=== PATIENT | female | born 1995 | race African-American/Black ===

== ENCOUNTER 2016-04-01 18:41 | Emergency (ER) | payer OTHER ==
[2016-04-01] MEDS ORDERED: METOCLOPRAMIDE INJ 10MG/2ML VIAL (J2765) As Ordered ONE (19:35)
[2016-04-01] MEDS ORDERED: diphenhydrAMINE INJ 50MG/ML VIAL (J1200) As Ordered ONE (19:35)
[2016-04-01] MEDS ORDERED: KETOROLAC 30 MG/ML VIAL (J1885) As Ordered ONE (19:35)
[2016-04-01 19:53] LABS: CONTROL LINE HCG INT CTR LINE PRESENT
--- NOTE | 2016-04-01 20:40 | REPUSA ---
CT of the head Clinical history: Headache. Technique: Multiple axial CT images were obtained through the head without administration of contrast . Findings: The ventricles and sulci are symmetric bilaterally. There is no evidence of acute hemorrhag e or infarct. There is no midline shift, mass effect, or extra-axial fluid collection. The osseous st ructures are unremarkable. The visualized paranasal sinuses and mastoid air cells are clear. Impression: Negative study.
--- NOTE | 2016-04-01 21:11 | EDDOCDS ---
Nurse's Notes [facility] Name: Michael Gallegos Age: 20 yrs Sex: Female : 1995 Arrival Date: 04/01/2016 Time: 18:41 Bed 18 Private MD: Shamir Wagner [facility] Diagnosis: Migraine without aura, not intractable Presentation: 04/01 18:47 Presenting complaint: EMS states: pain behind left eye began earlier today, FSBS 81, jjr room mate reported slurred speech and pt reported right arm and right side of face numbness resolved on EMS arrival. This patient has no additional risk factors. Adult Sepsis Screening: The patient does not have new or worsening altered mentation. Patient's respiratory rate is less than 22. Systolic blood pressure is greater than 100. Patient has a qSOFA score of 0- Negative Sepsis Screen. Suicide/Homicide risk assessment- the patient denies having any suicidal and/or homicidal ideations and does not present with any other emotional, behavioral or mental health complaints. 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 Transition of care: patient was not received from another setting of care. 18:47 Acuity: GLENROY Level 3 rust 18:47 Method Of Arrival: Ambulance rust Triage Assessment: 18:52 Headache History: This headache is more severe than any previous headaches the patient r has experienced. General: Appears in no apparent distress, Behavior is appropriate for age. Pain: Pain currently is 7 out of 10 on a pain scale. Pain began 1 hour ago Also complains of nausea. Pt Declines HIV testing. Neurological: No deficits noted. Reports dizziness, headache. GI: Reports nausea. BOBBIN PRESSER: 18:51 LMP 03/17/2016 jjr Historical: - Allergies: no known allergies; - Home Meds: 1. Tylenol 325 mg Oral tab 2 tabs every 4 hours (Last dose: 04/01/2016 17:45) - PMHx: none; - PSHx: none; - Social history: Smoking status: Patient states was never smoker of tobacco. No barriers to communication noted, The patient speaks fluent Palauan. - Family history: Not pertinent. - : The pt / caregiver states he / she is not on anticoagulants. Home medication list is obtained from the patient. - Exposure Risk Screening:: None identified. Screenin:10 Screening information is obtained from the patient. Fall risk: No risks identified. ko2 Assistance ADL's: requires no assistance with activities of daily living. Abuse/DV Screen: The patient / caregiver reports he/she is: not in a situation that causes fear, pain or injury. Nutritional screening: No deficits noted. Advance Directives: Currently, there is no health care proxy. There is no active DNR order. There is no living will. There is no Power of Production Control Coordinator. home support is adequate. Assessment: 18:53 Pain: Location: left eye and left amish Pain currently is 7 out of 10 on a pain scale. jjr Neurological: Entry Level Java Developer are equal bilaterally Speech is normal, Facial symmetry appears normal. 19:33 General: Appears uncomfortable, Behavior is appropriate for age, cooperative. Pain: ko2 Location: left amish and left eye Pain currently is 7 out of 10 on a pain scale. Neurological: Level of Consciousness is awake, alert, Oriented to person, place, time, Entry Level Java Developer are equal bilaterally Speech is normal, Facial symmetry appears normal. Respiratory: Airway is patent Respiratory effort is even, unlabored. Derm: Skin is normal. Musculoskeletal: Range of motion intact in all extremities. 20:18 General: Appears in no apparent distress, Behavior is appropriate for age, cooperative. ko2 Pain: Location: left amish Pain currently is 3 out of 10 on a pain scale. Neurological: Level of Consciousness is awake, alert. Derm: Skin is normal. 21:09 General: Appears in no apparent distress, Behavior is appropriate for age, cooperative. ko2 Pain: Location: left amish Pain currently is 1 out of 10 on a pain scale. Neurological: Level of Consciousness is awake, alert. Respiratory: Airway is patent Respiratory effort is even, unlabored. Derm: Skin is normal. Vital Signs: 18:49 BP 121 / 71; Pulse 74; Resp 18; Temp 97.8(TE); Pulse Ox 100% on R/A; Weight 65.77 kg rn1 (R); Height 5 ft. 2 in. (157.48 cm) (R); Pain 8/10; 20:21 Pain 3/10; ko2 21:07 BP 111 / 70; Pulse 75; Resp 18; Temp 99.1(TE); Pulse Ox 100% ; Pain 8/10; rn1 18:49 Body Mass Index 26.52 (65.77 kg, 157.48 cm) rn1 Vitals: 18:51 Log In Time N/A - ambulance arrival. jr ED Course: 18:42 Patient visited by Stephenie Anand Jewelry Estimator. lbd 18:42 Patient moved to Waiting lbd 18:43 [facility] is Private Physician. lbd 18:43 Rossi Manzo, RN is Primary Nurse. lbd 18:43 Patient moved to 18 lbd 18:49 Triage Initiated jjr 18:54 The patient / caregiver is instructed regarding the plan of care and ED course. jjr 18:56 Lyn Marshall RN is Primary Nurse. ko2 19:02 Primary Nurse role handed off by Rossi Manzo RN jjr 19:04 Cristobal Berger DO is Attending Physician. mm11 19:05 Patient visited by Cristobal Berger DO. mm11 19:07 Patient visited by Triston Bernardo PCA. kb5 19:13 Patient visited by Cristobal Berger DO. mm11 19:25 Inserted saline lock: 20 gauge in right antecubital area and blood collected. The ko2 patient tolerated the procedure well. 19:33 HCG,Serum Qualitative Sent. ko2 19:46 Patient visited by Lyn Marshall RN. ko2 20:06 Patient visited by Triston Bernardo PCA. kb5 20:18 Patient visited by Lyn Marshall RN. ko2 20:50 Patient visited by Cristobal Berger DO. mm11 20:50 [facility] is Referral Physician. mm11 21:02 Patient visited by Triston Bernardo PCA. kb5 21:08 CT Head Without Contrast Returned. EDMS 21:10 Discontinued lock intact, bleeding controlled, pressure dressing applied, No ko2 redness/swelling at site. No procedures done that require assistance. Administered Medications: 19:45 Drug: diphenhydrAMINE 25 mg [diphenhydramine 50 mg/mL injection solution (0.5 mL)] ko2 Route: IVP; Site: right antecubital; 20:21 Follow up: Response: No Adverse Reaction ko2 19:45 Drug: NS 0.9% 1000 ml [sodium chloride 0.9 % intravenous solution] Route: IV; Rate: ko2 bolus; Site: right antecubital; 19:46 Drug: ketorolac 30 mg [ketorolac 30 mg/mL (1 mL) injection solution (1 mL)] Route: IVP; ko2 Site: right antecubital; 20:21 Follow up: Pain 3/10 Adult; Response: Pain is decreased ko2 19:46 Drug: Metoclopramide 10 mg [metoclopramide 5 mg/mL injection solution] Route: IV; Rate: ko2 40 mg/hr; Infused Over: 15 mins; Site: right antecubital; 20:04 Follow up: IV Status: Completed infusion mlc 20:21 Follow up: Response: Nausea is resolved ko2 Order Results: Lab Order: HCG,Serum Qualitative; SPEC'M 04/01/16 19:32 Test: HCG, SERUM QUALITATIVE; Value: NEGATIVE; Range: NEGATIVE; Status: F Radiology Order: CT Head Without Contrast Test: CT Head Without Contrast REASON FOR EXAMINATION: new onset headache; ; CT of the head; Clinical history: Headache.; Technique: Multiple axial CT images were obtained through the head without administration of contrast; .; Findings: The ventricles and sulci are symmetric bilaterally. There is no evidence of acute hemorrhag; e or infarct. There is no midline shift, mass effect, or extra-axial fluid collection. The osseous st; ructures are unremarkable. The visualized paranasal sinuses and mastoid air cells are clear.; Impression: Negative study.; ; Outcome: 20:50 Discharge ordered by Provider. mm11 21:10 Discharge Assessment: Patient awake, alert and oriented x 3. No cognitive and/or ko2 functional deficits noted. Patient verbalized understanding of disposition instructions. patient administered narcotics - no. The following High Risk Discharge criteria are identified: None. Discharged to home ambulatory, with friend. Condition: stable. Discharge instructions given to patient, Instructed on discharge instructions, follow up and referral plans. Demonstrated understanding of instructions, Pt was receptive of discharge instructions/ teaching. CT Study completed. Property sent home with patient. 21:10 Patient left the ED. ko2 Signatures: Dispatcher MedHost EDMS Stephenie Anand, Jewelry Estimator Unit lbd Triston Bernardo, LOG HANDLER LOG HANDLER kb5 Cristobal Berger, DO DO mm11 Rossi Manzo, RN RN jnavr Erica Quan,RN RN mlc Lyn Marshall RN RN ko2 Lalo Branham rn1 MTDD
--- NOTE | 2016-04-01 21:11 | EDDOCDS ---
Physician Documentation [facility] Name: Michael Gallegos Age: 20 yrs Sex: Female : 1995 Arrival Date: 04/01/2016 Time: 18:41 Bed 18 Private MD: Shamir Wagner [facility] Disposition: 04/01/16 20:50 Discharged to Home/Self Care. Impression: Migraine without aura, not intractable. - Condition is Stable. - Discharge Instructions: Migraine Headache. - Medication Reconciliation, Local Pharmacy Hours form. - Follow up: Shamir Wagner [facility]; When: As needed; Reason: Continuance of care. - Problem is an acute exacerbation. - Symptoms are resolved. Historical: - Allergies: no known allergies; - Home Meds: 1. Tylenol 325 mg Oral tab 2 tabs every 4 hours (Last dose: 04/01/2016 17:45) - PMHx: none; - PSHx: none; - Social history: Smoking status: Patient states was never smoker of tobacco. No barriers to communication noted, The patient speaks fluent Uzbek. - Family history: Not pertinent. - : The pt / caregiver states he / she is not on anticoagulants. Home medication list is obtained from the patient. - Exposure Risk Screening:: None identified. 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 2 in. (157.48 cm) (R); Pain 8/10; 20:21 Pain 3/10; ko2 21:07 BP 111 / 70; Pulse 75; Resp 18; Temp 99.1(TE); Pulse Ox 100% ; Pain 8/10; rn1 18:49 Body Mass Index 26.52 (65.77 kg, 157.48 cm) rn1 MDM: 19:15 IV Saline Lock ordered. mm11 19:15 ketorolac 30 mg IVP once ordered. mm11 19:15 Metoclopramide 10 mg IV at 40 mg/hr once over 15 mins ordered. mm11 19:15 diphenhydrAMINE 25 mg IVP once ordered. mm11 19:15 NS 0.9% 1000 ml IV at bolus once ordered. mm11 19:16 CT Head Without Contrast Ordered. EDMS 19:16 HCG,Serum Qualitative Ordered. EDMS 19:56 HCG,Serum Qualitative Reviewed. mm11 Administered Medications: 19:45 Drug: diphenhydrAMINE 25 mg [diphenhydramine 50 mg/mL injection solution (0.5 mL)] ko2 Route: IVP; Site: right antecubital; 20:21 Follow up: Response: No Adverse Reaction ko2 19:45 Drug: NS 0.9% 1000 ml [sodium chloride 0.9 % intravenous solution] Route: IV; Rate: ko2 bolus; Site: right antecubital; 19:46 Drug: ketorolac 30 mg [ketorolac 30 mg/mL (1 mL) injection solution (1 mL)] Route: IVP; ko2 Site: right antecubital; 20:21 Follow up: Pain 3/10 Adult; Response: Pain is decreased ko2 19:46 Drug: Metoclopramide 10 mg [metoclopramide 5 mg/mL injection solution] Route: IV; Rate: ko2 40 mg/hr; Infused Over: 15 mins; Site: right antecubital; 20:04 Follow up: IV Status: Completed infusion mlc 20:21 Follow up: Response: Nausea is resolved ko2 Signatures: Dispatcher MedHost EDMS Cristobal Berger DO DO mm11 Rossi Manzo RN RN jjr Ogden, Kari, RN RN ko2 Erica Quan RN [facility] [place] MTDD
--- NOTE | 2016-04-05 09:56 | EDDOCDS ---
Physician Documentation [facility] Name: Michael Gallegos Age: 20 yrs Sex: Female : 1995 Arrival Date: 04/01/2016 Time: 18:41 Bed 18 Private MD: Shamir Wagner [facility] Disposition: 04/01/16 20:50 Discharged to Home/Self Care. Impression: Migraine without aura, not intractable. - Condition is Stable. - Discharge Instructions: Migraine Headache. - Medication Reconciliation, Local Pharmacy Hours form. - Follow up: Shamir Wagner [facility]; When: As needed; Reason: Continuance of care. - Problem is an acute exacerbation. - Symptoms are resolved. Historical: - Allergies: no known allergies; - Home Meds: 1. Tylenol 325 mg Oral tab 2 tabs every 4 hours (Last dose: 04/01/2016 17:45) - PMHx: none; - PSHx: none; - Social history: Smoking status: Patient states was never smoker of tobacco. No barriers to communication noted, The patient speaks fluent Lithuanian. - Family history: Not pertinent. - : The pt / caregiver states he / she is not on anticoagulants. Home medication list is obtained from the patient. - Exposure Risk Screening:: None identified. DIRECTOR OF MARKETING: 04/01 18:51 LMP 03/17/2016 jjr Vital Signs: 18:49 BP 121 / 71; Pulse 74; Resp 18; Temp 97.8(TE); Pulse Ox 100% on R/A; Weight 65.77 kg / rn1 145 lbs (R); Height 5 ft. 2 in. (157.48 cm) (R); Pain 8/10; 20:21 Pain 3/10; ko2 21:07 BP 111 / 70; Pulse 75; Resp 18; Temp 99.1(TE); Pulse Ox 100% ; Pain 8/10; rn1 18:49 Body Mass Index 26.52 (65.77 kg, 157.48 cm) rn1 MDM: 19:15 IV Saline Lock ordered. mm11 19:15 ketorolac 30 mg IVP once ordered. mm11 19:15 Metoclopramide 10 mg IV at 40 mg/hr once over 15 mins ordered. mm11 19:15 diphenhydrAMINE 25 mg IVP once ordered. mm11 19:15 NS 0.9% 1000 ml IV at bolus once ordered. mm11 19:16 CT Head Without Contrast Ordered. EDMS 19:16 HCG,Serum Qualitative Ordered. EDMS 19:56 HCG,Serum Qualitative Reviewed. mm11 04/02 09:04 T-Sheet-- Draft Copy was scanned into [employer] and attached to record. gb 09:04 Radiology Report was scanned into [employer] and attached to record. gb 12:53 PCR was scanned into [employer] and attached to record. gb Administered Medications: 04/01 19:45 Drug: diphenhydrAMINE 25 mg [diphenhydramine 50 mg/mL injection solution (0.5 mL)] ko2 Route: IVP; Site: right antecubital; 20:21 Follow up: Response: No Adverse Reaction ko2 19:45 Drug: NS 0.9% 1000 ml [sodium chloride 0.9 % intravenous solution] Route: IV; Rate: ko2 bolus; Site: right antecubital; 19:46 Drug: ketorolac 30 mg [ketorolac 30 mg/mL (1 mL) injection solution (1 mL)] Route: IVP; ko2 Site: right antecubital; 20:21 Follow up: Pain 3/10 Adult; Response: Pain is decreased ko2 19:46 Drug: Metoclopramide 10 mg [metoclopramide 5 mg/mL injection solution] Route: IV; Rate: ko2 40 mg/hr; Infused Over: 15 mins; Site: right antecubital; 20:04 Follow up: IV Status: Completed infusion mlc 20:21 Follow up: Response: Nausea is resolved ko2 Signatures: Dispatcher [employer]Host EDMS Patience Edwards, Reg Reg Cristobal Piña, DO mm11 Rossi Manzo RN RN Lyn Richter RN RN ko2 Erica Quan RN The chart was reviewed and I authenticate all verbal orders and agree with the evaluation and treatment provided.Attachments: 04/02 09:04 T-Sheet-- Draft Copy gb Chart Complete MTDD
--- NOTE | 2016-04-05 09:56 | EDDOCDS ---
Nurse's Notes [facility] Name: Michael Gallegos Age: 20 yrs Sex: Female : 1995 Arrival Date: 04/01/2016 Time: 18:41 Bed 18 Private MD: Shamir Wagner [facility] Diagnosis: Migraine without aura, not intractable Presentation: 04/01 18:47 Presenting complaint: EMS states: pain behind left eye began earlier today, FSBS 81, jjr room mate reported slurred speech and pt reported right arm and right side of face numbness resolved on EMS arrival. This patient has no additional risk factors. Adult Sepsis Screening: The patient does not have new or worsening altered mentation. Patient's respiratory rate is less than 22. Systolic blood pressure is greater than 100. Patient has a qSOFA score of 0- Negative Sepsis Screen. Suicide/Homicide risk assessment- the patient denies having any suicidal and/or homicidal ideations and does not present with any other emotional, behavioral or mental health complaints. 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 Transition of care: patient was not received from another setting of care. 18:47 Acuity: GLENROY Level 3 [facility] 18:47 Method Of Arrival: Ambulance [facility] Triage Assessment: 18:52 Headache History: This headache is more severe than any previous headaches the patient r has experienced. General: Appears in no apparent distress, Behavior is appropriate for age. Pain: Pain currently is 7 out of 10 on a pain scale. Pain began 1 hour ago Also complains of nausea. Pt Declines HIV testing. Neurological: No deficits noted. Reports dizziness, headache. GI: Reports nausea. 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 Tylenol 325 mg Oral tab 2 tabs every 4 hours (Last dose: 04/01/2016 17:45) - PMHx: none; - PSHx: none; - Social history: Smoking status: Patient states was never smoker of tobacco. No barriers to communication noted, The patient speaks fluent [place]. - Family history: Not pertinent. - : The pt / caregiver states he / she is not on anticoagulants. Home medication list is obtained from the patient. - Exposure Risk Screening:: None identified. Screenin:10 Screening information is obtained from the patient. Fall risk: No risks identified. ko2 Assistance ADL's: requires no assistance with activities of daily living. Abuse/DV Screen: The patient / caregiver reports he/she is: not in a situation that causes fear, pain or injury. Nutritional screening: No deficits noted. Advance Directives: Currently, there is no health care proxy. There is no active DNR order. There is no living will. There is no Power of Pharmacy Innovation Assistant. home support is adequate. Assessment: 18:53 Pain: Location: left eye and left islam Pain currently is 7 out of 10 on a pain scale. jjr Neurological: Animal Groomer are equal bilaterally Speech is normal, Facial symmetry appears normal. 19:33 General: Appears uncomfortable, Behavior is appropriate for age, cooperative. Pain: ko2 Location: left islam and left eye Pain currently is 7 out of 10 on a pain scale. Neurological: Level of Consciousness is awake, alert, Oriented to person, place, time, Animal Groomer are equal bilaterally Speech is normal, Facial symmetry appears normal. Respiratory: Airway is patent Respiratory effort is even, unlabored. Derm: Skin is normal. Musculoskeletal: Range of motion intact in all extremities. 20:18 General: Appears in no apparent distress, Behavior is appropriate for age, cooperative. ko2 Pain: Location: left islam Pain currently is 3 out of 10 on a pain scale. Neurological: Level of Consciousness is awake, alert. Derm: Skin is normal. 21:09 General: Appears in no apparent distress, Behavior is appropriate for age, cooperative. ko2 Pain: Location: left islam Pain currently is 1 out of 10 on a pain scale. Neurological: Level of Consciousness is awake, alert. Respiratory: Airway is patent Respiratory effort is even, unlabored. Derm: Skin is normal. Vital Signs: 18:49 BP 121 / 71; Pulse 74; Resp 18; Temp 97.8(TE); Pulse Ox 100% on R/A; Weight 65.77 kg rn1 (R); Height 5 ft. 2 in. (157.48 cm) (R); Pain 8/10; 20:21 Pain 3/10; ko2 21:07 BP 111 / 70; Pulse 75; Resp 18; Temp 99.1(TE); Pulse Ox 100% ; Pain 8/10; rn1 18:49 Body Mass Index 26.52 (65.77 kg, 157.48 cm) rn1 Vitals: 18:51 Log In Time N/A - ambulance arrival. jr ED Course: 18:42 Patient visited by Stephenie Anand Personal Care Worker. lbd 18:42 Patient moved to Waiting lbd 18:43 [facility] is Private Physician. lbd 18:43 Rossi Manzo, RN is Primary Nurse. lbd 18:43 Patient moved to 18 lbd 18:49 Triage Initiated jjr 18:54 The patient / caregiver is instructed regarding the plan of care and ED course. jjr 18:56 Lyn Marshall,BENITA is Primary Nurse. ko2 19:02 Primary Nurse role handed off by Rossi Manzo RN jjr 19:04 Cristobal Berger DO is Attending Physician. mm11 19:05 Patient visited by Cristobal Berger DO. mm11 19:07 Patient visited by Triston Bernardo PCA. kb5 19:13 Patient visited by Cristobal Berger DO. mm11 19:25 Inserted saline lock: 20 gauge in right antecubital area and blood collected. The ko2 patient tolerated the procedure well. 19:33 HCG,Serum Qualitative Sent. ko2 19:46 Patient visited by Lyn Marshall RN. ko2 20:06 Patient visited by Triston Bernardo PCA. kb5 20:18 Patient visited by Lyn Marshall RN. ko2 20:50 Patient visited by Cristobal Berger DO. mm11 20:50 [facility] is Referral Physician. mm11 21:02 Patient visited by Triston Bernardo PCA. kb5 21:08 CT Head Without Contrast Returned. EDMS 21:10 Discontinued lock intact, bleeding controlled, pressure dressing applied, No ko2 redness/swelling at site. No procedures done that require assistance. 04/02 09:04 T-Sheet-- Draft Copy was scanned into [employer] and attached to record. gb 09:04 Radiology Report was scanned into [employer] and attached to record. gb 12:53 PCR was scanned into [employer] and attached to record. gb Administered Medications: 04/01 19:45 Drug: diphenhydrAMINE 25 mg [diphenhydramine 50 mg/mL injection solution (0.5 mL)] ko2 Route: IVP; Site: right antecubital; 20:21 Follow up: Response: No Adverse Reaction ko2 19:45 Drug: NS 0.9% 1000 ml [sodium chloride 0.9 % intravenous solution] Route: IV; Rate: ko2 bolus; Site: right antecubital; 19:46 Drug: ketorolac 30 mg [ketorolac 30 mg/mL (1 mL) injection solution (1 mL)] Route: IVP; ko2 Site: right antecubital; 20:21 Follow up: Pain 3/10 Adult; Response: Pain is decreased ko2 19:46 Drug: Metoclopramide 10 mg [metoclopramide 5 mg/mL injection solution] Route: IV; Rate: ko2 40 mg/hr; Infused Over: 15 mins; Site: right antecubital; 20:04 Follow up: IV Status: Completed infusion mlc 20:21 Follow up: Response: Nausea is resolved ko2 Order Results: Lab Order: HCG,Serum Qualitative; SPEC'M 04/01/16 19:32 Test: HCG, SERUM QUALITATIVE; Value: NEGATIVE; Range: NEGATIVE; Status: F Radiology Order: CT Head Without Contrast Test: CT Head Without Contrast REASON FOR EXAMINATION: new onset headache; ; CT of the head; Clinical history: Headache.; Technique: Multiple axial CT images were obtained through the head without administration of contrast; .; Findings: The ventricles and sulci are symmetric bilaterally. There is no evidence of acute hemorrhag; e or infarct. There is no midline shift, mass effect, or extra-axial fluid collection. The osseous st; ructures are unremarkable. The visualized paranasal sinuses and mastoid air cells are clear.; Impression: Negative study.; ; Outcome: 20:50 Discharge ordered by Provider. mm11 21:10 Discharge Assessment: Patient awake, alert and oriented x 3. No cognitive and/or ko2 functional deficits noted. Patient verbalized understanding of disposition instructions. patient administered narcotics - no. The following High Risk Discharge criteria are identified: None. Discharged to home ambulatory, with friend. Condition: stable. Discharge instructions given to patient, Instructed on discharge instructions, follow up and referral plans. Demonstrated understanding of instructions, Pt was receptive of discharge instructions/ teaching. CT Study completed. Property sent home with patient. 21:10 Patient left the ED. ko2 Signatures: Dispatcher [employer] EDMS Stephenie Anand, Personal Care Worker Unit lbd Patience Edwards, Reg Reg gb AzCristin wallaceer, PRESS SHOP SUPERVISOR PRESS SHOP SUPERVISOR kb5 Cristobal Berger, DO mm11 Rossi Manzo RN Erica Pringle RN RN mlc Ogden, Kari, RN RN ko2 Lalo Branham rn1 Chart Complete MTDD
--- NOTE | 2016-04-05 09:56 | EDDOCDS ---
Physician Documentation [facility] Name: Michael Gallegos Age: 20 yrs Sex: Female : 1995 Arrival Date: 04/01/2016 Time: 18:41 Bed 18 Private MD: Shamir Wagner [facility] Disposition: 04/01/16 20:50 Discharged to Home/Self Care. Impression: Migraine without aura, not intractable. - Condition is Stable. - Discharge Instructions: Migraine Headache. - Medication Reconciliation, Local Pharmacy Hours form. - Follow up: Shamir Wagner [facility]; When: As needed; Reason: Continuance of care. - Problem is an acute exacerbation. - Symptoms are resolved. Historical: - Allergies: no known allergies; - Home Meds: 1. Tylenol 325 mg Oral tab 2 tabs every 4 hours (Last dose: 04/01/2016 17:45) - PMHx: none; - PSHx: none; - Social history: Smoking status: Patient states was never smoker of tobacco. No barriers to communication noted, The patient speaks fluent Czech. - Family history: Not pertinent. - : The pt / caregiver states he / she is not on anticoagulants. Home medication list is obtained from the patient. - Exposure Risk Screening:: None identified. 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 2 in. (157.48 cm) (R); Pain 8/10; 20:21 Pain 3/10; ko2 21:07 BP 111 / 70; Pulse 75; Resp 18; Temp 99.1(TE); Pulse Ox 100% ; Pain 8/10; rn1 18:49 Body Mass Index 26.52 (65.77 kg, 157.48 cm) rn1 MDM: 19:15 IV Saline Lock ordered. mm11 19:15 ketorolac 30 mg IVP once ordered. mm11 19:15 Metoclopramide 10 mg IV at 40 mg/hr once over 15 mins ordered. mm11 19:15 diphenhydrAMINE 25 mg IVP once ordered. mm11 19:15 NS 0.9% 1000 ml IV at bolus once ordered. mm11 19:16 CT Head Without Contrast Ordered. EDMS 19:16 HCG,Serum Qualitative Ordered. EDMS 19:56 HCG,Serum Qualitative Reviewed. mm11 04/02 09:04 T-Sheet-- Draft Copy was scanned into [employer] and attached to record. gb 09:04 Radiology Report was scanned into [employer] and attached to record. gb 12:53 PCR was scanned into [email or web address] and attached to record. gb Administered Medications: 04/01 19:45 Drug: diphenhydrAMINE 25 mg [diphenhydramine 50 mg/mL injection solution (0.5 mL)] ko2 Route: IVP; Site: right antecubital; 20:21 Follow up: Response: No Adverse Reaction ko2 19:45 Drug: NS 0.9% 1000 ml [sodium chloride 0.9 % intravenous solution] Route: IV; Rate: ko2 bolus; Site: right antecubital; 19:46 Drug: ketorolac 30 mg [ketorolac 30 mg/mL (1 mL) injection solution (1 mL)] Route: IVP; ko2 Site: right antecubital; 20:21 Follow up: Pain 3/10 Adult; Response: Pain is decreased ko2 19:46 Drug: Metoclopramide 10 mg [metoclopramide 5 mg/mL injection solution] Route: IV; Rate: ko2 40 mg/hr; Infused Over: 15 mins; Site: right antecubital; 20:04 Follow up: IV Status: Completed infusion mlc 20:21 Follow up: Response: Nausea is resolved ko2 Signatures: Dispatcher [employer] EDMS Patience Edwards, Reg Reg Cristobal Piña, DO mm11 Rossi Manzo RN RN Lyn Richter RN RN ko2 Erica Quan RN The chart was reviewed and I authenticate all verbal orders and agree with the evaluation and treatment provided.Attachments: 04/02 09:04 T-Sheet-- Draft Copy gb Chart Complete MTDD
== END 2016-04-01 21:10 | disposition home or self-care (01) ==
LOC: M ED 18:41
DX: G43.909 Migraine, unspecified, not intractable, without status migrainosus (principal)
CPT/HCPCS: 36415; 70450; 84703; 96365; 96375; 99284; J1200; J1885; J2765

== ENCOUNTER 2016-08-03 12:44 | Emergency (ER) | payer OTHER ==
[~2016-08-03] VITALS: Ht 157.5 cm; Wt 68.0 kg
[2016-08-03] MEDS ORDERED: PRENTAB29 (12:52)
[2016-08-03] MEDS ORDERED: NS 1,000 ML IV ONE (13:15)
[2016-08-03] MEDS ORDERED: METOCLOPRAMIDE INJ 10MG/2ML VIAL (J2765) IV ONE (13:15)
[2016-08-03 13:46] LABS: BASO % 0.1 % (0.0-1.0); EOS % 0.6 % (0.0-3.0); LARGE UNSTAINED CELL # 0.1 K/mm3 (0.0-0.4); LARGE UNSTAINED CELL % 0.8 % (0.0-4.0); LYMPH # 1.7 K/mm3 (1.5-6.5); LYMPH % 18.8 % (24.0-44.0); MEAN CORPUSCULAR HEMOGLOBIN 30.4 pg (27.0-33.0); MEAN CORPUSCULAR HGB CONC 35.7 g/dl (32.0-36.5); MEAN CORPUSCULAR VOLUME 85.2 fl (80.0-96.0); MONO # 0.3 K/mm3 (0.0-0.8); MONO % 2.8 % (0.0-5.0); NEUTROPHILS # 7.1 K/mm3 (1.8-7.7); PLATELET COUNT, AUTOMATED 200 k/mm3 (150-450); RED CELL DISTRIBUTION WIDTH 12.4 % (11.5-14.5); WHITE BLOOD COUNT 9.3 K/mm3 (4.0-10.0)
[2016-08-03 13:54] LABS: ANION GAP 7 MEQ/L (8-16); BLOOD UREA NITROGEN 6 MG/DL (7-18); CALCIUM LEVEL 9.2 MG/DL (8.5-10.1); CARBON DIOXIDE LEVEL 25 MEQ/L (21-32); CHLORIDE LEVEL 105 MEQ/L (98-107); CREATININE FOR GFR 0.69 MG/DL (0.55-1.02); GLOMERULAR FILTRATION RATE > 60.0 (>60); GLUCOSE, FASTING 84 MG/DL (70-105); POTASSIUM SERUM 3.6 MEQ/L (3.5-5.1); SODIUM LEVEL 137 MEQ/L (136-145)
[2016-08-03] MEDS ORDERED: ZOFR4TAB3 PO (14:23)
[2016-08-03 15:07] VITALS: BP 106/67
== END 2016-08-03 15:09 | disposition home or self-care (01) ==
LOC: M ED 15:00
DX: O21.9 Vomiting of pregnancy, unspecified (principal); Z3A.15 15 weeks gestation of pregnancy
CPT/HCPCS: 36415; 80048; 81001; 85025; 96374; 99283; J2765

== ENCOUNTER 2017-01-07 07:23 | Inpatient (IN) | payer OTHER ==
[~2017-01-07] VITALS: Ht 152.4 cm; Wt 69.6 kg
[2017-01-07] VITALS (36 sets, daily range): BP systolic 86–165; BP diastolic 48–91
[~2017-01-07 07:23] MED LIST: PRENTAB29; ZOFR4TAB3 PO
[2017-01-07] MEDS ORDERED: ACET50TA PO (08:10)
[2017-01-07] MEDS ORDERED: PENICILLIN G POTASSIUM IV 5 MU in D5W MINI-BAG PLUS 100 ML IV STA (09:40)
[2017-01-07] MEDS ORDERED: LACTATED RINGER'S 1000 ML IV STA (09:40)
--- NOTE | 2017-01-07 10:02 | HPEPDOC ---
Obstetrical History & Physical General Date of Admission Jan 07, 2017 at 09:30 History of Present Illness 21 y/o at 38+0 for LOF at 630. Clr. Copious since arrival. No VB. Pos FM. Uncomplicated preg other than single active duty, FOB involved. Depression that is well controlled. 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: No pertinent history Past Medical History Medical History depression, currently well controlled Surgical History: Denies/None Family History Significant Family History: No pertinent family hx Social History Marital Status: Single Family situation: Spouse/partner home Psychosocial History: No pertinent psych hx, Depression * Smoker: non-smoker Alcohol: Denies Drugs: denies Abuse Violence Screening Have you been hit/kicked/slapp: No Have you been sexually assault: No Imunizations Tdap status: current Influenza Status: current Allergies Coded Allergies: No Known Allergies (Unverified , 08/03/16) Medications Scheduled PRN Acetaminophen (Mapap) 500 Mg Tab, 1,000 MG PO PRN PRN for PAIN OR FEVER Ondansetron (Zofran Odt) 4 Mg Tab, 4 MG PO Q6HP PRN for NAUSEA Miscellaneous Medications [] Physical Examination Physical Examination GENERAL: Alert and oriented times three. BREAST: . ABDOMEN: Gravid and non-tender to touch. FETUS: vertex (VTX) by sterile vaginal examination (SVE), tight 4/80/-2. Copious fluid from vag, nitr pos EXTREMITIES: No edema. No clonus. Vital Signs/I&O Vital Signs Date Time Temp Pulse Resp B/P (MAP) Pulse Ox O2 Delivery O2 Flow Rate FiO2 01/07/17 07:49 87 115/71 (86) 01/07/17 07:43 97.9 18 Laboratory Data Urine Culture: No Growth Pertinent Laboratoy Data Blood Type: O+ RBC Antibody Screen: Negative HIV: Negative Hepatitis B: Negative Hepatitis C: Unknown Rapid Plasma Reagin: Nonreactive Rubella: Immune Varicella: Immune Chlamydia/Gonorrhea: Negative Group B Streptococcus: Positive Quad Screen Test: Declined Cystic Fibrosis: Negative Glucose Tolerance Test: 133 Anatomy Ultrasound Placenta Location: Posterior Normal Anatomy: Yes Placenta Previa: No Assessment Variability: Moderate Accelerations: Positive Decelerations: Early (with initial tracing, cat 1 since) Tocometer Frequency: irregular Assessment/Plan Assessment 38+0, SROM confirmed. Desires epidural. Plan Admit and orient. 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 Diet: clrs Group B Streptococcus (GBS) pos, PCN Labs and intravenous (IV) per unit protocol. Counseled on Pitocin and induction of labor (IOL). Lactated Ringers (LR): 125 mL/hr. Anticipate normal spontaneous delivery () C-S as appropriate. SESSIONS,LUIS E Recio MD Jan 07, 2017 10:02
[2017-01-07 10:08] LABS: MEAN CORPUSCULAR HEMOGLOBIN 28.5 pg (27.0-33.0); MEAN CORPUSCULAR HGB CONC 34.7 g/dl (32.0-36.5); MEAN CORPUSCULAR VOLUME 82.1 fl (80.0-96.0); RED CELL DISTRIBUTION WIDTH 12.8 % (11.5-14.5); WHITE BLOOD COUNT 13.3 10^3/uL (4.0-10.0)
[2017-01-07] MEDS: LR 1,000 ML IV SCH ×2 (11:19→18:56)
[2017-01-07] MEDS ORDERED: PENICILLIN G POTASSIUM IV 2.5 MU in D5W 100 ML IV SCH (14:00)
[2017-01-07] MEDS ORDERED: LR 1,000 ML IV SCH (14:50)
--- NOTE | 2017-01-07 14:50 | IPNPDOC ---
Text Note Date of Service The patient was seen on 01/07/17. NOTE NST Cat 1. Second dose PCN going in right now. Cx unchanged. Will start pitocin now. SBAR to MAJ Hillman soon. Sessions VS,Joseline, I+O VSJoseline I+O Laboratory Tests 01/07/17 09:57 Red Blood Count 4.59, Mean Corpuscular Volume 82.1, Mean Corpuscular Hemoglobin 28.5, Mean Corpuscular Hemoglobin Concent 34.7, Red Cell Distribution Width 12.8 Vital Signs Date Time Temp Pulse Resp B/P (MAP) Pulse Ox O2 Delivery O2 Flow Rate FiO2 01/07/17 10:34 98.2 86 18 125/81 (96) I&O- Last 24 Hours up to 6 AM 01/08/17 05:59 Intake Total 1110 ml Balance 1110 ml JOSÉ,LUIS E Recio MD Jan 07, 2017 14:50
[2017-01-07] MEDS ORDERED: OXYTOCIN 30 UNITS IN 0.9% NaCl 500ML IV BAG (J2590) As Ordered ONE (14:51)
[2017-01-07] MEDS ORDERED: OXYTOCIN DRIP 30 UNITS in APPROPRIATE DILUENT 1 EA IV SCH (15:00)
--- NOTE | 2017-01-07 15:34 | IPNPDOC ---
Text Note Date of Service The patient was seen on 01/07/17. NOTE 21 y/o at 38+0 by 9+0 wk US presented for LOF at 630. Clr. Copious since arrival. No VB. Pos FM. Uncomplicated preg other than single active duty, FOB involved. Depression that is well controlled. Assumed care @ [address] Mena S: pt is standing at bedside with her spouse next to her. States she is starting to feel CTXs. O: VS- WNL, afebrile FHR- 140, moderate variability, + accels, no decels CTX- Q 4-5 min, palpated as mild, resting tone palpated as soft SVE- done by Dr. Mena @ 1445 (/) She is unchanged from her previous exam around 1000. She has had her second dose of PCN. SROM- x 9 hours, fluid remains clear A: 21 yo G1 @ 38+0 with SROM x 9 hours. No cervical change. FHR CAT I. P: Cont to monitor and assess. Reassess 2 hour after pitocin is started or prn. Initiate pitocin and titrate per unit protocol. VS,Fishbone, I+O VS, Fishbone, I+O Laboratory Tests 01/07/17 09:57 Red Blood Count 4.59, Mean Corpuscular Volume 82.1, Mean Corpuscular Hemoglobin 28.5, Mean Corpuscular Hemoglobin Concent 34.7, Red Cell Distribution Width 12.8 Vital Signs Date Time Temp Pulse Resp B/P (MAP) Pulse Ox O2 Delivery O2 Flow Rate FiO2 01/07/17 14:58 98.3 67 18 116/76 (89) I&O- Last 24 Hours up to 6 AM 01/08/17 06:00 Intake Total 1110 ml Balance 1110 ml TAMEKA MCKEE CNM Jan 07, 2017 15:34
[2017-01-07] MEDS ORDERED: FENTANYL 2MCG/ML ROPIVACAINE 0.2% IN 0.9% NACL 200ML IVBAG As Ordered ONE (17:44)
[2017-01-07] MEDS ORDERED: FENTANYL/ROPIVACAINE/NACL BAG 200 ML EPIDURAL SCH (18:45)
[2017-01-07] MEDS ORDERED: EPIDURAL/PCA KEYS XX PRN (18:45)
[2017-01-07] MEDS ORDERED: ONDANSETRON 4MG/2ML VIAL (J2405) IV PRN (18:45)
[2017-01-07] MEDS ORDERED: EPIDURAL COMMENT XX SCH (18:45)
[2017-01-07] MEDS ORDERED: NALOXONE INJ 0.4 MG/1 ML VIAL (J2310) IV PRN (18:45)
[2017-01-07] MEDS ORDERED: LACTATED RINGER'S 1000 ML IV PRN (18:45)
[2017-01-07] MEDS ORDERED: REFRIGERATOR IV KEYS XX PRN (18:45)
[2017-01-07] MEDS ORDERED: diphenhydrAMINE INJ 50MG/ML VIAL (J1200) IV PRN (18:45)
[2017-01-07] MEDS ORDERED: ePHEDrine SULFATE 25 MG/5 ML(5MG/ML) SYRINGE IV PRN (18:45)
[2017-01-07] MEDS: PENICILLIN G POTASSIUM IV 2.5 MU in D5W 100 ML IV SCH ×2 (18:55→23:16)
--- NOTE | 2017-01-07 19:27 | IPNPDOC ---
Text Note Date of Service The patient was seen on 01/07/17. NOTE [id number] @ 1920 21 y/o at 38+0 by 9+0 wk US presented for LOF at 0630. Clr. Uncomplicated preg other than single active duty, FOB involved. S: pt is resting in bed with epidural infusing. FOB at bedside O: VS- WNL, afebrile FHR- 125, moderate variability, + accels, no decels CTX- Q 2-3 min, palpated as strong, resting tone palpated as soft SVE- 7/90/-1, vtx/soft/ant SROM- x 13 hours, fluid remains clear A: 21 yo G1 @ 38+0 with SROM x 9 hours. with cervical change noted. FHR CAT I. P: Cont to monitor and assess. Reassess 2 hour or prn. Do not increase pitocin unless no cervical change noted in 2 hours. cont antibiotics as ordered for GBS positive status VS,Fishbone, I+O VS, Fishbone, I+O Laboratory Tests 01/07/17 09:57 Red Blood Count 4.59, Mean Corpuscular Volume 82.1, Mean Corpuscular Hemoglobin 28.5, Mean Corpuscular Hemoglobin Concent 34.7, Red Cell Distribution Width 12.8 Vital Signs Date Time Temp Pulse Resp B/P (MAP) Pulse Ox O2 Delivery O2 Flow Rate FiO2 01/07/17 18:52 97.9 90 18 103/56 (72) I&O- Last 24 Hours up to 6 AM 01/08/17 06:00 Intake Total 2915 ml Output Total 350 ml Balance 2565 ml TAMEKA MCKEE CNM Jan 07, 2017 19:27
[2017-01-08] VITALS (10 sets, daily range): BP systolic 101–131; BP diastolic 53–87
[2017-01-08 00:18] LABS: CORD GAS ABE V -6.4; CORD GAS HCO3 V 20.8 MEQ/L; CORD GAS O2 SAT V 57.5 %; CORD GAS PCO2 V 46.9 mmHg; CORD GAS PH V 7.264 UNITS; CORD GAS PO2 V 25.1 mmHg; CORD GAS SBC V 18.3 MEQ/L; CORD GAS TCO2 V 22.2 MEQ/L
[2017-01-08 00:19] LABS: CORD GAS ABE A QNS; CORD GAS HCO3 A QNS MEQ/L; CORD GAS O2 SAT A QNS %; CORD GAS PCO2 A QNS mmHg; CORD GAS PH A QNS UNITS; CORD GAS PO2 A QNS mmHg; CORD GAS SBC A QNS MEQ/L; CORD GAS TCO2 A QNS MEQ/L
[2017-01-08] MEDS ORDERED: OXYTOCIN DRIP 30 UNITS in APPROPRIATE DILUENT 1 EA IV SCH (00:43)
[2017-01-08] MEDS ORDERED: DOCUSATE SODIUM 100 MG CAP PO PRN (00:45)
[2017-01-08] MEDS ORDERED: MOM 30ML SUSPENSION UDC PO PRN (00:45)
[2017-01-08] MEDS ORDERED: ONDANSETRON 4MG/2ML VIAL (J2405) IV PRN (00:45)
[2017-01-08] MEDS ORDERED: DIBUCAINE 1% OINTMENT 30GM TOP PRN (00:45)
[2017-01-08] MEDS ORDERED: PROMETHAZINE 25 MG TAB PO PRN (00:45)
[2017-01-08] MEDS ORDERED: ANUSOL HC CREAM 30GM TOP PRN (00:45)
--- NOTE | 2017-01-08 01:14 | DNPDOC ---
[facility] Delivery Note Delivery Note DATE OF DELIVERY: 07JAN2017 PREDELIVERY DIAGNOSIS: 38+0 weeks gestation and labor. POST DELIVERY DIAGNOSIS: Delivered. PROCEDURE: Spontaneous vaginal delivery VEGETABLE WORKER: Key Hillman CNM ANESTHESIA: epidural ESTIMATED BLOOD LOSS: 450 mL. FINDINGS: 6 pound 3 ounce female infant, Score 8/9, nuchal cord-none DELIVERY SUMMARY: Patient is a 21 yo who was admitted to labor and delivery for SROM on 07JAN2017 @ 0630. She progressed to complete/+3 with an epidural infusing and c/o increasing rectal pressure. Variable decelerations noted with pushing efforts. Female was delivered via to a sterile field. head was delivered in a controlled manner. No nuchal cord noted. Anterior shoulder was delivered after McRobert's, suprapubic pressure and bringing the mother's buttocks of the edge of the bed. Anterior shoulder( right) was delivered approx 40 sec after the head. Posterior shoulder and corpus delivered without difficulty. Cord clamped x 2 and cut by delivering provider. Infant taken to the warmer with a cry noted. Placenta delivered spontaneously approximately 8 min later. 2MLL noted and repaired using the Ybarra Method. Excellent hemostasis noted. EBL- 450 ml. APGARS 8/9. Wt 2820 gms, 6 lbs 3 ounces. Mother and infant are both doing well and bonding in the room. Anticipate routine PP course. Cord gases drawn and sent. GARDENIA Parnell KELLI C. CNM Jan 08, 2017 01:14
[2017-01-08] MEDS: IBUPROFEN 800 MG TAB PO PRN ×3 (07:54→20:18)
[2017-01-08] MEDS: PRENATAL VITAMINS CHEWABLE TABLET PO SCH (09:00)
--- NOTE | 2017-01-08 10:15 | IPNPDOC ---
Progress Note Date of Service The patient was seen on 01/08/17 at 10:01. Progress Note [id number] 21 yo G1 now P1001 s/p on 07JAN2017 of female 6 lbs 3 oz with 2MLL with repair. She was admitted for SROM. SUBJECTIVE: Patient reports she is comfortable. Bleeding moderate, breast- feeding, ambulating without difficulty, pain well controlled, control Nexplanon. Flatus and bowel movements (BM): . Voiding without difficulty OBJECTIVE: PHYSICAL EXAMINATION: VITAL SIGNS: Please see below. CARDIOVASCULAR: RRR, no m/r/g LUNGS: CTA BREAST EXAMINATION: no engorgement or erythema, non-tender FUNDUS: Firm at U-1, nontender to massage. PERINEUM: Edematous, well approximated. EXTREMITIES: Bilateral lower extremities, no edema, no erythema ASSESSMENT: 21 yo G1 now P1001 status post vaginal delivery with vaginal 2MLL and repair. Doing well, day #1. PLAN: Routine PP Care PP education Discharge to Home [id number] if appropriate Return for fever, pain or bleeding. control plans: nexplanon Followup plans: 6-week PP visit at [facility]. VS, I&O, [facility] Vital Signs/I&O Vital Signs Date Time Temp Pulse Resp B/P (MAP) Pulse Ox O2 Delivery O2 Flow Rate FiO2 01/08/17 06:14 99.1 92 16 117/53 (74) Laboratory Data 24H LABS Laboratory Tests 2 01/07/17 10:14: Serology Scanned Report Hepatitis B Testing 01/08/17 00:12: Cord Arterial Blood pH , Cord Arterial Blood PCO2 , Cord Arterial Blood PO2 , Cord Arterial Blood HCO3 , Cord Arterial Blood Total CO2 , Cord Arterial Blood Base Excess , Cord Arterial Base Excess (Standard , Cord Arterial Bld Oxygen Saturation , Cord Venous Blood pH 7.264, Cord Venous Blood PCO2 46.9, Cord Venous Blood PO2 25.1, Cord Venous Blood HCO3 20.8, Cord Venous Blood Total CO2 22.2, Cord Venous Base Excess (Actual) -6.4, Cord Venous Base Excess (Standard) 18.3, Cord Venous Blood Oxygen Saturation 57.5 TAMEKA MCKEE CNM Jan 08, 2017 10:15
[2017-01-08] MEDS: ACETAMINOPHEN 500 MG TAB PO PRN (21:38)
[2017-01-09 06:00] VITALS: BP 119/71
--- NOTE | 2017-01-09 08:41 | IPNPDOC ---
Text Note Date of Service The patient was seen on 01/09/17. NOTE PPD2 prog note States feeling well, no complaints. No heavy VB. Pain controlled. Voiding, ambulatory. Bonding well. Breast feeding. VSSAF CTAB RRR Ut at U-2, firm Ext no CCE a/p: Doing well. Routine PP care. D/C tomorrow, will be 48 hrs at midnight. Sessions VS,Joseline, I+O VSJoseline I+O Vital Signs Date Time Temp Pulse Resp B/P (MAP) Pulse Ox O2 Delivery O2 Flow Rate FiO2 01/09/17 06:00 97.5 72 18 119/71 (87) SESSIONS,LUIS E Recio MD Jan 09, 2017 08:41
[2017-01-09] MEDS: PRENATAL VITAMINS CHEWABLE TABLET PO SCH (08:57)
[2017-01-09] MEDS: ACETAMINOPHEN 500 MG TAB PO PRN (15:51)
[2017-01-09 18:00] VITALS: BP 109/55
[2017-01-10 05:59] VITALS: BP 127/80
[2017-01-10] MEDS ORDERED: IBUP-1114 PO (08:39)
[2017-01-10] MEDS ORDERED: COLA100C5 PO (08:40)
[2017-01-10] MEDS: PRENATAL VITAMINS CHEWABLE TABLET PO SCH (08:57)
== END 2017-01-10 12:30 | disposition home or self-care (01) | DRG 775 ==
LOC: M LDO 07:23 → M LDI 09:30 → M OBS 01-08 02:40
PROVIDERS: ADMIT Obstetrics & Gynecology; ATTEND Midwife
PROC: 10E0XZZ Delivery of Products of Conception, External Approach (ICD-10-PCS; principal; 2017-01-07)
PROC: 0KQM0ZZ Repair Perineum Muscle, Open Approach (ICD-10-PCS; 2017-01-07)
DX: O99.824 Streptococcus B carrier state complicating childbirth (principal); Z3A.38 38 weeks gestation of pregnancy; O70.1 Second degree perineal laceration during delivery; Z37.0 Single live birth